=== PATIENT | female | born 1990 | race Caucasian/White ===

== ENCOUNTER 2019-06-22 14:37 | Outpatient (CLI) | payer OTHER, SELFPAY ==
[2019-06-22 15:32] LABS: Hematocrit 32.7 % (37.0-47.0); Hemoglobin 11.7 g/dL (12.0-15.0); Mean Corpuscular HGB Conc 35.8 g/dl (32-36); Mean Corpuscular Hemoglobin 34.5 pg (26-34); Mean Corpuscular Volume 96.5 fl (80-100); Mean Platelet Volume 9.8 fl (7.4-10.4); Platelet Count Result 211 k/mm3 (150-375); Red Blood Count 3.39 M/mm3 (4.2-5.4); Red Cell Distribution Width 12.2 % (11.5-14.5); White Blood Count 10.4 K/mm3 (4.5-10.0)
[2019-06-23 08:47] LABS: Rapid Plasma Reagin Non-Reactive (NonReactive)
== END 2019-06-22 14:38 | disposition home or self-care (01) ==
PROVIDERS: PCP Family Medicine; Visit Provider Obstetrics & Gynecology
DX: Z01.818 Encounter for other preprocedural examination (principal)
CPT/HCPCS: 36415; 85027; 86592; 86850; 86900; 86901

== ENCOUNTER 2019-06-23 05:25 | Inpatient (IN) | payer OTHER, SELFPAY ==
[2019-06-23] VITALS (68 sets, daily range): BP systolic 84–122; BP diastolic 47–82; PULSE 55–102; RESP 14–18; TEMP 36.3–36.8; O2SAT 98–100; BMI 31.0
[2019-06-23] MEDS: LACTATED RINGERS 1,000 ML 125 ML IV CONT ×2 (06:47→07:05)
--- NOTE | 2019-06-23 06:48 | WPDANESEPPF ---
Anes - Initial Pre Proc Eval Procedure: Operation Date: 06/23/19 07:30 Proposed Procedures p Repeat Section - Jeremie Kendall MD Date/Time: 06/23/19 06:48 Surgeon: Jeremie Kendall MD Pre Op Diagnosis: previous csection Patient Data Age: 29 Gender: F Height: Weight: Allergies Allergy/AdvReac Type Severity Reaction Status Date / Time naproxen Allergy Unknown Verified 01/31/10 13:52 Home Medications Medication Instructions Recorded Confirmed Type PNV cmb#95-ferrous fumarate-FA 1 tablet PO DAILY 06/01/19 06/01/19 History [] omega 9-llx-ypq-fish oil [Fish Oil] 1 cap PO DAILY 06/01/19 06/01/19 History Patient hx anesthesia problems: none Family hx anesthesia problems: none PMFSH Past Medical History Medical History Anemia Bronchitis Cataract, right eye Depression Facial fracture Foot fracture, right GERD (gastroesophageal reflux disease) Liver disease Surgical History Surgical History H/O section H/O left knee surgery Family History Family History Other No pertinent family history Social History Social History Smoking status: Smoker, status unknown Alcohol intake: never Substance use: never Gender identity (if verbalized by the patient): Female Spiritual care concerns: No Anes - Eval Final PreProcedure Day of Procedure 06/23/19 06:48 Patient weight: overweight Heart: regular rate and rhythm Lungs: clear to auscultation Airway: Mallampati scale class 1 Neurological: alert and oriented Last oral intake: >/= 8 hours ASA classification: II Emergent: no Anesthetic plan: proceed Anesthesia type and monitoring: regional spinal and standard monitoring Informed Consent: The patient's anesthetic plan and its attendant risks and benefits were discussed with the patient/family/POA. Questions were solicited and answers provided to the satisfaction of the patient/family/POA.
--- NOTE | 2019-06-23 06:52 | LDADM ---
This patient, Kellie Stevenson, was admitted to Labor/Delivery/Recovery 120 on 06/23/19 at 05:25. Plans for labor, pain management and were discussed with patient. Patient/family oriented to hospital policies and general routines including ID bracelet, bed and alarms, visiting hours, pain management, procedures, bathroom and other care routines, personal items, smoking policy, room service/diet and guest tray routines, security routines, and visiting hours. Patient/Family are encouraged to report perceived risks to care and to ask questions if they do not understand what they are told or what they should do. See OBIX for further documentation.
--- NOTE | 2019-06-23 07:07 | PM.IMHP ---
H&P: HPI History of Present Illness Chief complaint: previous csection Narrative: Kellie Stevenson is a 29 year old female 3 para 2001 at 39 weeks gestation with 2 previous deliveries. We will proceed with repeat today. She has no complaints. She reports good movement. She denies any loss of fluid, vaginal bleeding, contractions. She denies any chest pain or shortness of breath. She denies any nausea, vomiting, fever, chills. She denies any upper respiratory symptoms. Review of Systems Constitutional: Constitutional: Reports no additional constitutional complaints, Denies fatigue, Denies headache(s), Denies lethargy and Denies weakness Eyes: Eyes: Reports no additional eye complaints, Denies blurry vision and Denies photophobia ENT: Reports as per HPI, Denies headache(s) and Denies neck pain Cardiovascular: Cardiovascular: Denies chest pain, Denies diaphoresis, Denies leg edema, Denies palpitations and Denies dyspnea Respiratory: Respiratory: Denies hemoptysis, Denies dyspnea and Denies wheezing Gastrointestinal: Gastrointestinal: Denies abdominal pain, Denies melena, Denies bloating, Denies hematochezia, Denies nausea and Denies vomiting Genitourinary: Genitourinary: Reports no additional female genitourinary complaints Musculoskeletal: Musculoskeletal: Denies joint swelling, Denies neck pain, Denies numbness and Denies stiffness Neurologic: Denies Abnormal speech present, Denies confusion, Denies headache(s), Denies numbness and Denies weakness Psychiatric: Psychiatric: Denies anxiety, Denies confusion, Denies depression, Denies homicidal ideation and Denies suicidal ideation Endocrine: Endocrine: Denies fatigue and Denies palpitations Allergic/Immunologic: Allergic/Immunologic: Denies wheezing [facility] Past Medical History Medical History Anemia Bronchitis Cataract, right eye Depression Facial fracture Foot fracture, right GERD (gastroesophageal reflux disease) Liver disease Surgical History Surgical History H/O section H/O left knee surgery Family History Family History Other No pertinent family history Social History Social History Smoking status: Smoker, status unknown Alcohol intake: never Substance use: never Gender identity (if verbalized by the patient): Female Spiritual care concerns: No Meds Home Medications and Allergies Home Medications Medication Instructions Recorded Confirmed Type PNV cmb#95-ferrous fumarate-FA 1 tablet PO DAILY 06/01/19 06/01/19 History [] omega 4-nde-gph-fish oil [Fish Oil] 1 cap PO DAILY 06/01/19 06/01/19 History Allergies Allergy/AdvReac Type Severity Reaction Status Date / Time naproxen Allergy Unknown Verified 01/31/10 13:52 Exam Const: General: healthy appearing, comfortable and no acute distress; No confusion Orientation/consciousness: No confusion Eyes: Direct Ophthalmoscopy: No photophobia Resp: Auscultation: clear to auscultation bilaterally, no rales, no rhonchi and no wheezes Cardio: Rate: regular rate Heart sounds: no click, no murmurs and no rubs GI: Inspection: non-distended GI Palp: No abdominal tenderness Auscultation: normal bowel sounds Neuro: General: No confusion Speech: No Abnormal speech present Extrem: General: normal to inspection, no pedal edema and no calf tenderness Assessment and Plan Assessment and plan (1) Previous section: Code(s): Z98.891 - History of uterine scar from previous surgery Status: Acute (2) Term : Code(s): Z34.90 - Encounter for supervision of normal , unspecified, unspecified trimester Status: Acute Assessment and Plan: 29-year-old 3 para
--- NOTE | 2019-06-23 08:44 | P.OP_ITS ---
Procedure Note - Detailed Date of procedure: 06/23/19 Pre-op diagnosis: previous csection Term gestation, previous delivery Post-op diagnosis: same Procedure performed: repeat low-transverse delivery Description of procedure: The patient was taken the operating room. She was prepped and draped in the dorsal supine position with leftward tilt after induction of spinal anesthetic. When anesthesia was found to be adequate a low- transverse skin incision was made and carried down to the level the fascia with the knife. The fascial incision was made at the midline with a scalpel. The fascial incision was extended laterally with Major scissors. The fascia was tented upward superior and inferior with Derick clamps. The rectus muscles were dissected off bluntly. The rectus muscles at the midline. The preperitoneal fat was dissected bluntly at the superior aspect of the separate the rectus muscles. The peritoneal cavity was entered bluntly in the same area. The peritoneal incision was extended superior and inferior with good visualization of bladder. Bladder blade was inserted. A low-transverse incision was made on the uterus with the scalpel. It was carried down the level of the amniotic cavity with a knife. The amniotic cavity bluntly. The uterine incision was made laterally with blunt traction. The infant was delivered. The cord was clamped and cut. The infant was handed off to waiting pediatric staff. Cord bloods were obtained. The placenta was removed manually. The uterus was exteriorized. Uterus cleared of all clots and debris. Uterus closed in 0 Vicryl in a running locked fashion. An imbricating layer of 0 Vicryl was also placed on the to bolster the closure. The uterus was returned to the abdomen. The gutters were cleared of all clots and debris. The fascia was closed 0 Vicryl in a running fashion. Subcutaneous tissue was irrigated and bleeding areas were cauterized. The skin was closed with subcuticular absorbable beto. The incision was covered with derma pittman. The patient tolerated the procedure well. She was taken recovery room stable condition. Sponge, lap, needle counts were correct x2. Anesthesia: spinal Surgeon: Jeremie Kendall MD Estimated blood loss (mL): 240 Drains: No Packing: No Pathology: none sent Complications: No immediate complications Condition: stable Disposition: floor Findings: Normal maternal anatomy. Average size infant with normal Apgars.
[2019-06-23] MEDS: OXYTOCIN 30 UNITS/NS 500 ML 30 UNITS/500 ML BAG 125 UNITS (09:41)
[2019-06-23] MEDS: KETOROLAC 15 MG/ML VIAL (*BKC) IV PUSH ×2 (11:10→19:45)
--- NOTE | 2019-06-23 13:49 | OBPPTRN ---
Patient transferred to post room #280 via stretcher. Support person present. Oriented to unit, room, information board, rooming in, admission packet and security measures. Patient verbalizes understanding.
[2019-06-24 04:56] VITALS: BP 105/67; PULSE 81; RESP 16; TEMP 36.4; O2SAT 99
[2019-06-24 05:37] LABS: Basophils Absolute Auto 0.1 K/mm3 (0.0-0.1); Basophils Percent Auto 0.4 % (0.2-1.2); Eosinophils Absolute Auto 0.2 K/mm3 (0-0.3); Eosinophils Percent Auto 1.3 % (0-4.4); Hematocrit 32.1 % (37.0-47.0); Hemoglobin 10.9 g/dL (12.0-15.0); Immature Granulocyte Absolute 0.05 K/mm3 (0.00-0.031); Immature Granulocyte Percent A 0.4 % (0-0.5); Lymphocytes Percent Auto 15.1 % (18.3-44.2); Mean Corpuscular Hemoglobin 34.1 pg (26-34); Mean Corpuscular Volume 100.3 fl (80-100); Mean Platelet Volume 10.2 fl (7.4-10.4); Monocytes Absolute Auto 1.2 K/mm3 (0.1-0.6); Monocytes Percent Auto 9.8 % (2.6-8.5); Neutrophils Absolute Auto 8.7 K/mm3 (1.3-6.7); Platelet Count Result 184 k/mm3 (150-375); Red Cell Distribution Width 12.2 % (11.5-14.5); White Blood Count 11.9 K/mm3 (4.5-10.0)
--- NOTE | 2019-06-24 07:30 | PM.OBPNVD ---
OB - PN: Subj Subjective Date/time seen: 06/24/19 07:30 OB - PN: Obj Data Labs CBC & Chem 7: 06/24/19 04:22 Labs: Laboratory Results - last 24 hr 06/24/19 04:22 WBC 11.9 H RBC 3.20 L Hgb 10.9 L Hct 32.1 L MCV 100.3 H MCH 34.1 H MCHC 34.0 RDW 12.2 Plt Count 184 MPV 10.2 Immature Gran % (Auto) 0.4 Neut % (Auto) 73.0 Lymph % (Auto) 15.1 L Daggett % (Auto) 9.8 H Eos % (Auto) 1.3 Baso % (Auto) 0.4 Lymph # (Auto) 1.80 Daggett # (Auto) 1.2 H Eos # (Auto) 0.2 Baso # (Auto) 0.1 Abs Immat Gran (auto) 0.05 H Absolute Neuts (auto) 8.7 H Absolute Nucleated RBC 0.0 Nucleated RBC % 0.0 OB - PN A/P Plan day: 1 Plan: routine care Time Spent With Patient Time: Total time spent is greater than 50% in coordination of care (as documented) at patient's floor/unit and/or counseling patient: Review of Systems Review of Systems: All systems reviewed & are unremarkable except as noted in HPI and below Constitutional: Constitutional: Reports as per HPI Cardiovascular: Cardiovascular: Reports as per HPI Genitourinary: Genitourinary: Reports no additional female genitourinary complaints Integumentary/Breasts: Skin/Breast: Reports system reviewed and no additional complaints, except as docu Neurologic: Reports system reviewed and no additional complaints, except as documented Exam Const: General: comfortable Chest: Breast/axilla inspection: normal inspection of the breasts Resp: Effort & Inspection: normal respiratory effort Psych: Appearance: grossly normal Affect: normal affect Attitude: cooperative Judgement: Good judgement present (Psych)
--- NOTE | 2019-06-24 07:45 | PC.NURSE ---
PT introductions made and plan of care discussed per post op c section, pain management, breast feeding, daily care activities. PT verbalized understanding of such care.
--- NOTE | 2019-06-24 08:06 | WPDANLDPN2 ---
Anes-Prog Note L&D Date/Time: 06/24/19 08:06 Comfortable throughout: section Neuraxial method: spinal Epidural/Spinal procedure site: clean & non-tender Neuro status: Neuro function grossly intact. Cardiovascular status: normal Respiratory status: normal Airway patency: baseline Mental status: baseline Post-Op hydration status: normal Vital Signs: Last Vital Signs Temp 36.4 C L 06/24/19 04:56 Pulse 81 06/24/19 04:56 Resp 16 06/24/19 04:56 BP 105/67 06/24/19 04:56 Pulse Ox 99 06/24/19 04:56 I/O: Intake & Output 06/23/19 06/24/19 06/24/19 23:59 07:59 15:59 Intake Total 400 2880 Output Total 400 4850 Balance 0 -1970 Post-procedural complaints: none Patient feedback: Patient satisfied with anesthetic care.
--- NOTE | 2019-06-24 08:06 | WPDANLDNPN2 ---
Anes-Prog Note L&D-Neuraxial Date/Time: 06/24/19 08:06 Neuraxial medications: intrathecal PF morphine Opiod-related complaints: none Patient feedback: Patient satisfied with post-operative pain management.
[2019-06-24] MEDS: IBUPROFEN 600 MG TABLET (08:07)
[2019-06-24] MEDS: MULTIVIT/MIN/PREN/FOL AC/IRON TABLET 1 TAB PO (08:07)
[2019-06-24] MEDS: DOCUSATE SODIUM 100 MG CAPSULE PO ×2 (08:08→15:24)
[2019-06-24] MEDS: SIMETHICONE 80 MG TAB.CHEW PO ×3 (08:08→15:24)
[2019-06-24 08:35] VITALS: BP 107/71; PULSE 75; RESP 18; TEMP 36.8; O2SAT 99
[2019-06-24 11:00] VITALS: PULSE 75; RESP 18; O2SAT 99
--- NOTE | 2019-06-24 11:00 | PC.NURSE ---
RN called out for assisting mother with latching. Mother is attempting infant to breast, is fussy and on and off several times. is eagerly making attempts to latch will suckle a few times and release crying yet eagerly rooting. Mother is using cross cradle positioning/alignment, holding breast in U hold and guiding infant with asymmetrical latch on. Had mother hold U hold firmly to keep in 's mouth. This worked for good bursts of effective suckling, up to 2-3 minutes. Small amounts of formula dribbled while suckling. Mother continued with on and off feeding and will then supplement and pump. Infant nursed eagerly with bursts of steady draws and occasional swallowing noted. Reviewed signs of a correct latch, effective nursing and suck swallow ratio. Nipple care reviewed. Instructed mother to call out for RN assistance if she is unable to latch for feeding or she has discomfort with nursing. Instructed feeding should be initiated three hours from start of last feeding or if feeding cues are noted before. Mother voiced understanding of information shared. Mother has been pumping by choice to assist with milk production and will continue to offer EBM/formula until is maintaining consistent suck swallow.
[2019-06-24] MEDS: IBUPROFEN 600 MG TABLET PO ×2 (15:24→23:30)
[2019-06-24 19:30] VITALS: BP 118/82; PULSE 97; RESP 17; TEMP 37.1
[2019-06-25] MEDS: IBUPROFEN 600 MG TABLET PO ×3 (05:31→19:24)
--- NOTE | 2019-06-25 07:35 | PC.NURSE ---
PT introductions made and plan of care discussed per post op c section, pain management, breast feeding, daily care activities.PT verbalized understanding of such care.
[2019-06-25 07:40] VITALS: BP 122/67; PULSE 96; RESP 18; TEMP 36.9; O2SAT 99
--- NOTE | 2019-06-25 07:51 | PM.OBPNVD ---
OB - PN: Subj Subjective Date/time seen: 06/25/19 07:51 Patient comments: no complaints, pain well controlled, incisional pain, tolerating diet and flatus present OB - PN: Obj Data Labs CBC & Chem 7: 06/24/19 04:22 OB - PN A/P Plan day: 2 Plan: routine care Comments: POD#2 LTCS - no problems, routine care Time Spent With Patient Time: Total time spent is greater than 50% in coordination of care (as documented) at patient's floor/unit and/or counseling patient: Exam Const: General: comfortable, no acute distress and alert Resp: Effort & Inspection: normal respiratory effort Auscultation: no crackles, no rales and no rhonchi Cardio: Rate: regular rate Heart sounds: no click, no murmurs and no rubs GI: Inspection: non-distended GI Palp: No Tenderness to palpation present (GI) Auscultation: normal bowel sounds Other: Incision - CDI Extrem: General: normal to inspection, no pedal edema and no calf tenderness
[2019-06-25 10:15] VITALS: PULSE 96; RESP 18; O2SAT 99
[2019-06-25] MEDS: MULTIVIT/MIN/PREN/FOL AC/IRON TABLET 1 TAB PO (10:18)
[2019-06-25] MEDS: DOCUSATE SODIUM 100 MG CAPSULE PO ×2 (10:18→16:13)
[2019-06-25] MEDS: SIMETHICONE 80 MG TAB.CHEW PO ×3 (10:32→16:13)
[2019-06-25] MEDS: LANOLIN (LANSINOH) 7.5 GM CREAM 1 APPLIC TOPICAL (10:32)
--- NOTE | 2019-06-25 11:50 | PC.NURSE ---
Consult with pt., mother reports struggled during the night with latch. Mother was tearful and states she was stressed with feeding status, she began to pump and bottle feeding after feeding attempts. Mother states continues with same struggles of eagerly attempting and will not draw nipple in deeply and have a consistent nursing. Discussed infant weight and output, ICP would like for regular supplementation of 20mls EBM/formula after each feeding. Mother is comfortable with supplementation if needed. Requested mother call out for assist with feedings.
--- NOTE | 2019-06-25 15:30 | PC.NURSE ---
Mother call out out for assist. Upon entering mother has latched deeply/correctly with good positioning/alignment, holding breast and asymmetrical latch on. Infant nursed eagerly, with steady draws and frequent swallowing noted. Reviewed signs of a correct latch, effective nursing and suck swallow ratio. was able to maintain latch without discomfort to mother. Nipple care reviewed. Mother is pleased infant is nursing consistently. Assured mother is learning and may have feedings of on and off, to continue to work with latch and may offer small amounts of bottle before latching to calm infant before attempting to breast.
[2019-06-25 19:00] VITALS: BP 138/94; PULSE 94; RESP 17; TEMP 36.7
[2019-06-26] MEDS: IBUPROFEN 600 MG TABLET PO ×2 (02:15→08:53)
--- NOTE | 2019-06-26 07:48 | PM.OBPNVD ---
OB - PN: Subj Subjective Date/time seen: 06/26/19 07:48 Patient comments: no complaints, pain well controlled, incisional pain, tolerating diet and flatus present OB - PN: Obj Data Labs CBC & Chem 7: 06/24/19 04:22 OB - PN A/P Plan day: 3 Plan: routine care, discharge home and other Comments: Incision check in one week. Given precautions Time Spent With Patient Time: Total time spent is greater than 50% in coordination of care (as documented) at patient's floor/unit and/or counseling patient: Exam Const: General: comfortable, no acute distress and alert Resp: Effort & Inspection: normal respiratory effort Auscultation: no crackles, no rales and no rhonchi Cardio: Rate: regular rate Heart sounds: no click, no murmurs and no rubs GI: Inspection: non-distended GI Palp: No Tenderness to palpation present (GI) Auscultation: normal bowel sounds Other: Incision - CDI Extrem: General: normal to inspection, no pedal edema and no calf tenderness
--- NOTE | 2019-06-26 07:49 | PM.OBDSVD ---
DS: Diagnosis Admitting Diagnosis Admitting Diagnosis: History of uterine scar from previous surgery Discharge Diagnosis (1) delivery delivered: Code(s): O82 - Encounter for delivery without indication Status: Acute OB - DS: Summary OB Procedures : None OB Procedures Intrapartum: OB Procedures: : None Peripartum Data Delivery Method: Section Procedures: Procedures Operation Date: 06/23/19 07:30 Actual Procedures Side Surgeon p Section Bilateral Jeremie Kendall MD complications: none Status at Discharge Functional status at discharge: independent ambulation Time Spent with Patient Time attestation: Total time spent providing and/or coordinating discharge services: Discharge Plan Discharge Discharging Clinician: Jeremie Kendall Patient Disposition: Home, Self-Care Activity: pelvic rest Diet: regular Patient Instructions: Antibiotic Form Stand Alone Forms: General Discharge Information Follow-up/Referrals: Jeremie Kednall MD [Physician] - Discharge Medications: New hydrocodone-acetaminophen 5-325 mg tablet 1 - 2 tablet PO Q4H PRN (Reason: pain) Qty: 25 RF: 0 Continued PNV cmb#95-ferrous fumarate-FA [] 28 mg iron- 800 mcg Tablet 1 tablet PO DAILY RF: 0 omega 2-qba-buv-fish oil [Fish Oil] 1,000 mg (120 mg-180 mg) Capsule 1 cap PO DAILY RF: 0 Date of admission: 06/23/19 05:25 Primary Care Provider: Gregg Wilson Admitting Provider: Jeremie Kendall Attending physician on admission: Jeremie Kendall
[2019-06-26 08:00] VITALS: BP 132/94; PULSE 91; RESP 18; TEMP 36.4; O2SAT 100
--- NOTE | 2019-06-26 08:00 | PC.NURSE ---
Patient instructed to view the discharge video Mother & Baby Care, The First Two Weeks online. Patient was given the opportunity and encouraged to ask questions. Patient verbalized understanding of information shared and has been given the mother/baby guide for home reference.
[2019-06-26] MEDS: MULTIVIT/MIN/PREN/FOL AC/IRON TABLET 1 TAB PO (08:52)
[2019-06-26] MEDS: DOCUSATE SODIUM 100 MG CAPSULE PO (08:53)
[2019-06-29 09:27] VITALS: BP 123/89; PULSE 78; RESP 20; TEMP 36.7
== END 2019-06-26 16:10 | disposition home or self-care (01) | DRG 540 ==
LOC: ANHLDR 05:29 → ANHOB2 11:55
PROVIDERS: Admitting Provider Obstetrics & Gynecology; PCP Family Medicine; Visit Provider Obstetrics & Gynecology
PROC: 10D00Z1 Extraction of Products of Conception, Low, Open Approach (ICD-10-PCS; CPT 59514; principal; 2019-06-23 07:30)
DX: O34.211 Maternal care for low transverse scar from previous cesarean delivery (principal); Z37.0 Single live birth; Z3A.39 39 weeks gestation of pregnancy; O99.02 Anemia complicating childbirth; D64.9 Anemia, unspecified; K21.9 Gastro-esophageal reflux disease without esophagitis; O99.62 Diseases of the digestive system complicating childbirth; O26.62 Liver and biliary tract disorders in childbirth; K76.9 Liver disease, unspecified
CPT/HCPCS: 36415; 85025; A9270; J0131; J1200; J1885; J2274; J2405; J2590; J7120

== ENCOUNTER 2023-07-15 12:51 | Outpatient (CLI) | payer BC, SELFPAY ==
--- NOTE | ~2023-07-15 | US_ITS ---
EXAMINATION: US pelvic complete INDICATION: Abnormal uterine bleeding Comparison:No prior studies for comparison. TECHNIQUE: Multiple transabdominal and endovaginal sonographic images of the pelvis performed. FINDINGS: The uterus measures 10.8 x 3 x 5.3 cm. The endometrial complex measures 11 mm. The right ovary measures 3.2 x 3 x 2.1 cm and the left ovary measures 2.7 x 2 x 1.8 cm. There are sm all follicles in each ovary. Normal doppler signal in both ovaries. There is no free fluid in the pelvis. There are no abnormal masses seen on either side. IMPRESSION: 1. Unremarkable pelvic ultrasound. Reviewed, dictated and finalized at location B.
== END 2023-07-15 12:52 ==
LOC: MICIMG 12:52
PROVIDERS: PCP Family Medicine; Visit Provider Nurse Practitioner Women's Health
DX: N93.8 Other specified abnormal uterine and vaginal bleeding (principal); R10.2 Pelvic and perineal pain
CPT/HCPCS: 76856

== ENCOUNTER 2024-08-03 00:15 | Day surgery (SDC) | payer BC, SELFPAY ==
[2024-07-30 09:52] VITALS: BMI 22.5
--- NOTE | 2024-07-30 09:52 | PC.NURSE ---
Report to the Outpatient Waiting Room, entrance under the green pavilion located off [facility], at time _0600_ on date _[id number]_. Planned Procedure Time: _0730_.? Time changes happen often and if your time is changed the preop area will call you the afternoon before. - You and your visitor will be asked to self-screen and do not enter if you have any COVID symptoms. Please call surgeon if you need to reschedule. - A mask is optional within the hospital at this time. Patients may have clear liquids (water, carbonated beverages, clear teas, apple juice) until 3 hours prior to surgery with a maximum of 20 ounces. - No food from midnight until time of surgery and no smoking, or chewing tobacco (or any form of nicotine). No chewing gum, candy or mints. Take only the following medications with a SIP of water on the morning of surgery: __None DO NOT STOP ANY OF YOUR OTHER PRESCRIPTION MEDICATIONS PRIOR TO SURGERY EXCEPT THE FOLLOWING Hold all vitamins and supplements for 3 days per anesthesiologist. Stop now. Medications to discontinue per physician Date to take last dose Please no make-up, nail citizen of [place], hairspray, perfume, deodorant, or body powder the day of surgery.? No jewelry (including any body piercings) or valuables the day of surgery, leave them at home.? Please take a shower or bath the night before, or the morning of, surgery with an antibacterial soap.? Wear comfortable, loose fitting clothing.? - Jewelry must be removed prior to entering the operating room.? Rings and piercings that are not removed may be cut off. - The hospital will not accept responsibility for valuables.? - Please leave all valuables, including medications, at home the day of surgery. If you are going home after surgery, a licensed concrete mixer truck driver must drive you home.? - NO public transportation without another adult if you receive anesthesia. - We recommend that an adult stay with you for 24 hours following discharge. - We also recommend that you do not drive, make important decision, drink alcoholic beverages, or take any drugs that were not prescribed by your health care provider for at least 24 hours after your discharge time. Follow any additional instructions given to you from your surgeon. Telephone instructions given to __Kellie___and asked if any additional questions and then verbalized understanding. Patient advised to call surgeon office or pre surgery nurse liaison [phone] if any additional questions.
[2024-08-03 06:30] VITALS: BP 115/72; PULSE 69; RESP 14; TEMP 36.2; O2SAT 100
[2024-08-03] MEDS: LACTATED RINGERS 1,000 ML 30 ML IV CONT ×2 (06:30→08:15)
--- NOTE | 2024-08-03 06:49 | WPDANESEPPF ---
Anes - Initial Pre Proc Eval Procedure: Operation Date: 08/03/24 07:30 Proposed Procedures p Left Labia Minora Labiaplasty - Jennifer Uribe MD Date/Time: 08/03/24 06:49 Surgeon: Jennifer Uribe MD Pre Op Diagnosis: Excessive Labia Minora Tissue post trauma Patient Data Age: 34 Gender: F Height: 1.65 m Weight: 61.4 kg Allergies Allergy/AdvReac Type Severity Reaction Status Date / Time naproxen Allergy Severe Anaphylactic Verified 07/30/24 09:44 Shock Home Medications ?Medication ?Instructions ?Recorded ?Confirmed ?Type szxhlayk-ngm-mofi-FA-Ca carb-vit K 1 tablet PO DAILY 07/30/24 07/30/24 History 18 mg iron-400 mcg-500 mg tablet (One-A-Day Womens Formula) Patient hx anesthesia problems: none Family hx anesthesia problems: none Results Review: All pre-operative results and documents have been reviewed as part of the pre-operative evaluation. [facility] Past Medical History Medical History (Updated 07/07/19 @ 14:33 by Cesilia Humphrey [facility]) Anemia Liver disease Depression Foot fracture, right Facial fracture GERD (gastroesophageal reflux disease) Bronchitis Cataract, right eye Surgical History Surgical History H/O left knee surgery H/O section Family History Family History Other No pertinent family history Social History Social History Years smoked: 7 Smoking status: Former smoker Smoking end date: 07/30/14 Alcohol intake: never Substance use: never Living arrangements: with family Gender identity (if verbalized by the patient): Female Spiritual care concerns: No Anes - Eval Final PreProcedure Day of Procedure 08/03/24 06:49 Patient weight: normal Heart: regular rate and rhythm Lungs: clear to auscultation and normal air movement Airway: Mallampati scale class II Neurological: alert and oriented Last oral intake: >/= 8 hours ASA classification: II Emergent: no Anesthetic plan: proceed Anesthesia type and monitoring: general GIVS and standard monitoring Results Review: All pre-operative results and documents have been reviewed as part of the pre-operative evaluation. Informed Consent: The patient's anesthetic plan and its attendant risks and benefits were discussed with the patient/family/POA. Questions were solicited and answers provided to the satisfaction of the patient/family/POA.
--- NOTE | 2024-08-03 07:20 | WPDHPUPDATE1 ---
History and Physical Update Update Date/Time: 08/03/24 07:20 History and Physical has been reviewed, including an updated exam of the patient. There are NO changes in the patient's condition. Risks, benefits, and alternatives have been discussed and questions answered. Patient agrees to proceed with procedure.
--- NOTE | 2024-08-03 07:20 | PM.HPGS ---
History of Present Illness History of Present Illness Consent: Risks, benefits, and alternatives have been discussed and questions answered. Patient agrees to proceed with procedure. Chief complaint: Excessive Labia Minora Tissue post trauma Narrative: Kellie Stevenson is a 34 year old female with a trauma induced labia minora on the left that is very painful. Patient reports that it feels like a nerve is being touched every time it is touched. Patient with like the area reduced in an effort to relieve the pain. The risks of the procedure including infection, bleeding, and scarring are reviewed. In addition, the risk of persistent pain postoperatively was discussed. The patient voices understanding and agrees to proceed. Review of Systems Review of Systems: not repeated day of surgery; patient states no changes in status PMFSH Past Medical History Medical History (Updated 08/03/24 @ 07:24 by Jennifer Uribe MD) Depression GERD (gastroesophageal reflux disease) Cataract, right eye Surgical History Surgical History (Updated 08/03/24 @ 07:22 by Jennifer Uribe MD) H/O left knee surgery H/O section X3 Family History Family History Other No pertinent family history Social History Social History Years smoked: 7 Smoking status: Former smoker Smoking end date: 07/30/14 Alcohol intake: never Substance use: never Living arrangements: with family Gender identity (if verbalized by the patient): Female Spiritual care concerns: No Meds Home Medications and Allergies Home Medications ?Medication ?Instructions ?Recorded ?Confirmed ?Type wxobikot-[id number]-[id number] carb-vit K 1 tablet PO DAILY 07/30/24 07/30/24 History 18 mg iron-400 mcg-500 mg tablet (One-A-Day Womens Formula) Allergies Allergy/AdvReac Type Severity Reaction Status Date / Time naproxen Allergy Severe Anaphylactic Verified 07/30/24 09:44 Shock Exam Const: General: comfortable and no acute distress : External Female Exam: other (Left labia minora 3cm flap hangs over the labia majora, tender) Assessment and Plan Assessment and plan (1) Laceration of labia minora: Code(s): S31.41XA - Laceration without foreign body of vagina and vulva, initial encounter Status: Acute Assessment and Plan: Distant traumatic injury with residual pain and a labial flap Plan to reduce the labia minora flap.
[2024-08-03] MEDS: LIDOCAINE 1% LOCAL INJ 10 ML VIAL INFILTRATE (07:41)
--- NOTE | 2024-08-03 07:54 | W.PM.PROC2 ---
Procedure Note - Detailed Date of Procedure 08/03/24 Pre-op Diagnosis Excessive Labia Minora Tissue post traumatic laceration Post-op Diagnosis Same Procedure Performed Left labia minora reduction Surgeon Jennifer Uribe MD Anesthesia MAC and Local (1% lidocaine) Findings The left labia minora has a approximately 3cm flap of tissue that protrudes past the labia majora. Description of Procedure The patient was taken to the operating room and placed under anesthesia in the dorsal lithotomy position. She was prepped and draped in the usual sterile fashion. The left labia minora is inspected and the portion to be excised is marked with a sterile marker. The incision line is injected with 1% lidocaine on each side. The tissue is excised using a scalpel following the previous markings. Bovie cautery was used to cauterize the bleeding vessels. The tissue was closed using 4-0 Vicryl in a subcuticular fashion. Good hemostasis is obtained. Symmetric labia minora are noted. The patient was awakened from anesthesia and taken to recovery in stable condition. Estimated Blood Loss 5 Drains No Packing No Pathology None sent Complications No immediate complications Condition Stable Disposition PACU
[2024-08-03 07:56] VITALS: BP 78/45; PULSE 56; RESP 14; O2SAT 100
[2024-08-03 08:00] VITALS: BP 82/45
[2024-08-03 08:15] VITALS: BP 101/65; PULSE 55; RESP 16; O2SAT 100
[2024-08-03 08:45] VITALS: BP 99/50; PULSE 61; RESP 16
[2024-08-03 09:05] VITALS: BP 105/71; PULSE 62; RESP 16
== END 2024-08-03 09:12 | disposition home or self-care (01) ==
PROVIDERS: PCP Family Medicine; Visit Provider Obstetrics & Gynecology Gynecology
PROC: (CPT 56620; principal; 2024-08-03 07:30)
DX: N90.89 Other specified noninflammatory disorders of vulva and perineum (principal); Z87.828 Personal history of other (healed) physical injury and trauma; Z87.891 Personal history of nicotine dependence
CPT/HCPCS: 56620; A9270; J1100; J2003; J2250; J2405; J2704; J3010; J7120